=== PATIENT | male | born 1985 | race Caucasian/White ===

== ENCOUNTER 2017-07-22 13:33 | Emergency (ER) | payer OTHER ==
--- NOTE | 2017-07-22 16:00 | XRAY Preliminary Report ---
Exam: XR Shoulder 3 View LT IMPRESSION: Normal shoulder radiography. [facility] SITE ID: [id number]
--- NOTE | 2017-07-22 16:03 | XRAY Report ---
EXAM: LEFT SHOULDER RADIOGRAPHY EXAM DATE: 07/22/2017 03:55 PM. CLINICAL HISTORY: Fell with shoulder injury. COMPARISON: None. TECHNIQUE: 3 views. FINDINGS: Bones: Normal. No fracture or bone lesion. Joints: The glenohumeral and acromioclavicular joints are normal. Soft tissues: The visualized hemithorax is unremarkable. No soft tissue swelling. IMPRESSION: Normal shoulder radiography. [facility] Referring Provider Line: [phone] SITE ID: [id number]
--- NOTE | 2017-07-22 17:01 | ED Physician Documentation ---
PD HPI UPPER EXT INJURY - Stated complaint Stated Complaint: LEFT SHOULDER INJ - Chief complaint Chief Complaint: Ext Problem - History obtained from History obtained from: Patient - History of Present Illness Location: Other (He was at work today and stepped backwards, fell into a manhole , he scraped his right knee, he landed with his arm abducted and complains of posterior left shoulder pain and numbness especially on the ulnar side of the left hand. No head or neck injury. Pain was better after ibuprofen today.) Review of Systems Constitutional: denies: Fever, Chills Throat: denies: Dental pain / toothache, Sore throat Cardiac: denies: Chest pain / pressure, Palpitations Respiratory: denies: Dyspnea, Cough PD PAST MEDICAL HISTORY - Past Medical History Past Medical History: No - Present Medications Home Medications: Ambulatory Orders Medication Instructions Recorded Confirmed HYDROcod/ACETAM 5/325 [[place] 5/325] 1 - 2 ea PO Q6H PRN #10 tablet 07/22/17 - Allergies Allergies/Adverse Reactions: Allergies Allergy/AdvReac Type Severity Reaction Status Date / Time Penicillins Allergy Unknown Verified 07/22/17 14:22 - Social History Does the pt smoke?: No Smoking Status: Never smoker Does the pt drink ETOH?: Yes Does the pt have substance abuse?: No - Immunizations Immunizations are current?: Yes PD ED PE NORMAL - Vitals Vital signs reviewed: Yes - General General: Alert and oriented X 3, No acute distress - HEENT HEENT: PERRL, EOMI - Neck Neck: Supple, no meningeal sign, No bony TTP - Extremities Extremities: Other (The left shoulder is nontender, he is able to abduct to little less than 90, further passively, pop positive supraspinatus testing. He has painless internal and external rotation. Neuropsychology Division Chief strength is equal and symmetric throughout as is thumb extension, wrist flexion and extension, and interossei strength. He does have mildly diminished sensation on both sides of the dorsal hand but not the palm, that he estimates as 90% of the right side.) - Neuro Neuro: Alert and oriented X 3, Normal speech - Psych Psych: Normal mood, Normal affect Results - Vitals Vitals: Vital Signs - 24 hr 07/22/17 14:17 Temperature 36.6 C Heart Rate 66 Respiratory 16 Rate Blood Pressure 130/85 H O2 Saturation 99 Oxygen O2 Source Room air - Rads (name of study) 3 views of the left shoulder Radiology: EMP read contemporaneously (Normal) PD MEDICAL DECISION MAKING - ED course ED course: 32-year-old gentleman with a shoulder injury on the left, seems consistent with rotator cuff strain, not tear, also a very mild brachial plexopathy. Follow-up with orthopedics was advised as well as early range of motion exercises. Departure - Departure Disposition: 01 Home, Self Care Clinical Impression: Brachial plexopathy Strain of left rotator cuff capsule Qualifiers: Encounter type: initial encounter Qualified Code(s): S46.012A - Strain of muscle(s) and tendon(s) of the rotator cuff of left shoulder, initial encounter Condition: Good Record reviewed to determine appropriate education?: Yes Instructions: ED Torn Rotator Cuff Follow-Up: [facility] [Provider Group] - Within 1 week Prescriptions: HYDROcod/ACETAM 5/325 [[place] 5/325] 1 - 2 ea PO Q6H PRN #10 tablet PRN Reason: Pain Comments: Your blood pressure was elevated today on check into the emergency department. This does not mean that you have hypertension, it is a common phenomenon to come to the emergency department and have elevated blood pressure. I recommend that she see your primary care physician within the week to have it rechecked when you are feeling better. Do not drink or drive while taking narcotic pain medication. Note that many narcotic pain relievers also contain Tylenol/acetaminophen. Please ensure that your total dose of acetaminophen from all sources does not exceed 3 g (3000 mg) per day. You may get constipated while on this medication. Take a stool softener such as Colace twice a day while you are on it. Also add an [id number] laxative such as senna or MiraLAX on any day that you do not have a bowel movement. If you received a narcotic pain medication or sedative while in the emergency department, do not drive for the next 24 hours. Forms: Activity restrictions
[2017-07-22 17:06] VITALS: BP 134/72
== END 2017-07-22 17:06 | disposition home or self-care (01) ==
LOC: ED 13:33
DX: S46.012A Strain of muscle(s) and tendon(s) of the rotator cuff of left shoulder, initial encounter (principal); W17.1XXA Fall into storm drain or manhole, initial encounter; Y92.89 Other specified places as the place of occurrence of the external cause; Y99.0 Civilian activity done for income or pay; G54.0 Brachial plexus disorders; R03.0 Elevated blood-pressure reading, without diagnosis of hypertension
CPT/HCPCS: 99283

== ENCOUNTER 2020-04-13 10:48 | Emergency (ER) | payer OTHER ==
[2020-04-13 12:12] LABS: BASOPHILS % (AUTO) 0.3 %; EOSINOPHILS % (AUTO) 0.4 %; HGB - HEMOGLOBIN 15.8 g/dL (14.0-18.0); LYMPHOCYTES # (AUTO) 2.1 10^3/uL (1.5-3.5); LYMPHOCYTES % (AUTO) 22.4 %; MEAN CORPUSCULAR HEMOGLOBIN 30.9 pg (27.0-31.0); MEAN CORPUSCULAR HGB CONC 35.4 g/dL (32.0-36.0); MEAN CORPUSCULAR VOLUME 87.1 fL (80.0-94.0); MONOCYTES # (AUTO) 0.9 10^3/uL (0.0-1.0); NEUTROPHILS # (AUTO) 6.2 10^3/uL (1.5-6.6); NEUTROPHILS % (AUTO) 66.4 %; PLT - PLATELET COUNT 179 10^3/uL (130-450); RED BLOOD COUNT 5.12 10^6/uL (4.70-6.10); RED CELL DISTRIBUTION WIDTH 12.3 % (12.0-15.0); WHITE BLOOD COUNT 9.3 x10^3/uL (4.8-10.8)
[2020-04-13 12:25] LABS: ALBUMIN 4.8 g/dL (3.2-5.5); ALBUMIN/GLOBULIN RATIO 2.1 (1.0-2.2); BILIRUBIN,TOTAL 1.1 mg/dL (0.2-1.0); CALCIUM 9.2 mg/dL (8.5-10.3); CREATININE 1.4 mg/dL (0.6-1.2); TOTAL PROTEIN 7.1 g/dL (6.7-8.2)
[2020-04-13 13:58] LABS: BILIRUBIN,URINE NEGATIVE (NEGATIVE); GLUCOSE, URINE (UA) NEGATIVE (NEGATIVE); KETONES,URINE (UA) NEGATIVE (NEGATIVE); LEUKOCYTE ESTERASE, URINE NEGATIVE (NEGATIVE); NITRITE,URINE NEGATIVE (NEGATIVE); OCCULT BLOOD,URINE TRACE-INTA (NEGATIVE); PROTEIN,URINE NEGATIVE (NEGATIVE); UROBILINOGEN,URINE 0.2 (NORMAL) E.U./dL (NORMAL)
[2020-04-13 14:03] LABS: CLARITY,URINE CLEAR (CLEAR)
--- NOTE | 2020-04-13 14:09 | ED Physician Documentation ---
PD HPI ABD PAIN - Stated complaint Stated Complaint: R SIDED STOMACH PX - Chief complaint Chief Complaint: Abd Pain - History obtained from History obtained from: Patient - History of Present Illness Timing - onset: Enter time (399), Today Timing - duration: Hours Timing - details: Abrupt onset, Still present Quality: Aching, Sharp, Pain Location: RLQ Improved by: Laying still Worsened by: Position, Palpation Associated symptoms: Nausea, Vomiting Similar symptoms before: Diagnosis (appendicitis) Recently seen: Emergency Dept - Additional information Additional information: 34-year-old male has had a recent issue with some numbness to the right side of his face. He has been up to [place] had a CT scan done of his sinuses and he still has these symptoms. He woke this morning at 4:00 in the morning with acute right lower quadrant abdominal pain. He states it is similar to what happened when he had his appendix out. He states that the time he did not have appendicitis he had his appendix out was found that his appendix had eroded into his stomach wall. He states that it does hurt more if he is up and walking and that he has had some vomiting. He has not had a fever. Review of Systems Constitutional: denies: Fever, Myalgias Eyes: denies: Decreased vision Ears: denies: Ear pain Nose: reports: Sinus pressure / pain, Other (numbness to the right cheek). denies: Rhinorrhea / runny nose, Congestion Throat: denies: Sore throat Cardiac: denies: Chest pain / pressure, Palpitations Respiratory: denies: Dyspnea, Cough GI: reports: Abdominal Pain, Nausea, Vomiting. denies: Constipation, Diarrhea : denies: Dysuria, Frequency PD PAST MEDICAL HISTORY - Present Medications Home Medications: Ambulatory Orders Medication Instructions Recorded Confirmed HYDROcod/ACETAM 5/325 [[place] 5/325] 1 - 2 ea PO Q6H PRN #10 tablet 07/22/17 - Allergies Allergies/Adverse Reactions: Allergies Allergy/AdvReac Type Severity Reaction Status Date / Time Penicillins Allergy Unknown Verified 04/13/20 11:09 - Social History Does the pt smoke?: No Smoking Status: Never smoker Does the pt drink ETOH?: Yes Does the pt have substance abuse?: No - Immunizations Immunizations are current?: Yes PD ED PE NORMAL - Vitals Vital signs reviewed: Yes (hypertensive mild ) - General General: Alert and oriented X 3, No acute distress, Well developed/nourished - HEENT HEENT: Atraumatic, PERRL, EOMI - Neck Neck: Supple, no meningeal sign, No bony TTP - Cardiac Cardiac: RRR, No murmur - Respiratory Respiratory: No respiratory distress, Clear bilaterally - Abdomen Abdomen: Normal bowel sounds, Soft, Non distended, No organomegaly, Other (There is tenderness to deep palpation over the right lower quadrant laterally. There is no garding ) - Back Back: No CVA TTP, No spinal TTP - Derm Derm: Normal color, Warm and dry, No rash - Extremities Extremities: No deformity, No edema - Neuro Neuro: Alert and oriented X 3, rib cloth knitter 2-12 intact, No motor deficit, No sensory deficit, Normal speech Eye Opening: Spontaneous Motor: Obeys Commands Verbal: Oriented GCS Score: 15 - Psych Psych: Normal mood, Normal affect Results - Vitals Vitals: Vital Signs - 24 hr 04/13/20 11:00 Temperature 36.3 C L Heart Rate 63 Respiratory 17 Rate Blood Pressure 132/80 H O2 Saturation 98 Oxygen O2 Source Room air - Labs Labs: Laboratory Tests 04/13/20 04/13/20 04/13/20 12:06 12:06 12:47 WBC 9.3 RBC 5.12 Hgb 15.8 Hct 44.6 MCV 87.1 MCH 30.9 MCHC 35.4 RDW 12.3 Plt Count 179 MPV 11.0 Neut # (Auto) 6.2 Lymph # (Auto) 2.1 [place] # (Auto) 0.9 Eos # (Auto) 0.0 Baso # (Auto) 0.0 Absolute Nucleated RBC 0.00 Nucleated RBC % 0.0 Sodium 141 Potassium 3.7 Chloride 102 Carbon Dioxide 28 Anion Gap 11.0 BUN 21 H Creatinine 1.4 H Estimated GFR (MDRD) 58 L Glucose 102 H Calcium 9.2 Total Bilirubin 1.1 H AST 17 ALT 28 Alkaline Phosphatase 46 Total Protein 7.1 Albumin 4.8 Globulin 2.3 Albumin/Globulin Ratio 2.1 Lipase 30 Urine Color YELLOW Urine Clarity CLEAR Urine pH 6.0 Ur Specific [place] <=1.005 Urine Protein NEGATIVE Urine Glucose (UA) NEGATIVE Urine Ketones NEGATIVE Urine Occult Blood TRACE-INTA Urine Nitrite NEGATIVE Urine Bilirubin NEGATIVE Urine Urobilinogen 0.2 (NORMAL) Ur Leukocyte Esterase NEGATIVE Ur Microscopic Review NOT INDICATED Urine Culture Comments NOT INDICATED - Rads (name of study) CT ab/pel w Radiology: Prelim report reviewed (Impression: 1. Moderate stool suggestive of constipation. No obstruction. 2. Appendix is unremarkable.), EMP read indepedently, See rad report Procedures - Bedside sono Bedside sono by EMP: With use of bedside ultrasound the right kidney is imaged there is no evidence of hydronephrosis and the kidney is sonographically nontender. PD MEDICAL DECISION MAKING - ED course Complexity details: reviewed old records, reviewed results, re-evaluated patient, considered differential, d/w patient ED course: 34-year-old male with right lower quadrant pain has some tenderness on exam he does not have guarding he does not have his appendix. I did examine the patient for hydronephrosis and found this to be lacking on today's exam. A CT scan of the abdomen pelvis with contrast is undertaken to further delineate.The CT scan demonstrates a significant stool burden on the right side I suspect this may be the etiology of this patient's pain. Departure - Departure Disposition: 01 Home, Self Care Clinical Impression: Constipation Qualifiers: Constipation type: unspecified constipation type Qualified Code(s): K59.00 - Constipation, unspecified Condition: Stable Instructions: ED Constipation Follow-Up: Benitez Schroeder DO [Primary Care Provider] -
[2020-04-13] MEDS ORDERED: IOVERSOL 320 100 ML VIAL IVP ONE ×2 (15:12→15:30)
--- NOTE | 2020-04-13 15:38 | CT Report ---
PROCEDURE: Abdomen/Pelvis W INDICATIONS: RLQ abdominal pain CONTRAST: IV CONTRAST: Optiray 320 ml: 100 PO CONTRAST: *NO PO CONTRAST TECHNIQUE: After the administration of oral and intravenous contrast, 5 mm thick sections acquired from the diap hragms to the symphysis. 5 mm thick coronal and sagittal reformats were acquired. For radiation dos e reduction, the following was used: automated exposure control, adjustment of mA and/or kV accordin g to patient size. COMPARISON: None. FINDINGS: Image quality: Excellent. ABDOMEN: Lung bases: Lung bases are clear. Heart size is normal. Solid organs: Liver and spleen are normal in size and enhancement. Gallbladder is unremarkable Felix iary system is non dilated. Pancreas enhances normally. No adrenal nodules. Kidneys demonstrate no rmal size and enhancement, without hydronephrosis. Peritoneum and bowel: Bowel loops demonstrate normal wall thickness and caliber. No free fluid or a ir. Moderate stool is present. No obstruction. Appendix is unremarkable. Minimal scattered diverticula ar e noted. Nodes and vessels: No retroperitoneal or mesenteric adenopathy by size criteria. Aorta and inferior vena cava are normal in size. Miscellaneous: Small fat-containing ventral hernia. PELVIS: Genitourinary: Bladder wall thickness is normal. Miscellaneous: No inguinal hernias or adenopathy. Bones: No suspicious bony lesions. No vertebral body compression fractures. IMPRESSION: 1. Moderate stool suggestive constipation. No obstruction. 2. Appendix is unremarkable. Reviewed by: Mary Jo Lowe MD on 04/13/2020 3:37 PM PDT Approved by: Mary Jo Lowe MD on 04/13/2020 3:37 PM PDT Station ID: [id number]
[2020-04-13] MEDS ORDERED: MAGNESIUM HYDROXIDE 2,400 MG/30 ML UDC PO STA (15:54)
[2020-04-13 16:11] VITALS: BP 130/84
== END 2020-04-13 16:11 | disposition home or self-care (01) ==
LOC: ED 10:48
DX: K59.00 Constipation, unspecified (principal)
CPT/HCPCS: 36415; 74177; 80053; 81003; 83690; 85025; 99284; A9270; Q9967; 81001; 87086

== ENCOUNTER 2021-10-24 08:00 | Outpatient (CLI) | payer OTHER | END 2021-10-24 23:59 | LOC: LAB 08:00 | PROVIDERS: ATTEND Family Medicine | DX: U07.1 COVID-19 (principal) ==